=== PATIENT | female | born 1965 | race Caucasian/White ===

== ENCOUNTER 2024-03-29 10:54 | Outpatient (CLI) | payer OTHER | END 2024-03-29 10:55 | disposition home or self-care (01) | LOC: LABBT 10:54 | PROVIDERS: ATTEND Surgery | DX: Z01.810 Encounter for preprocedural cardiovascular examination (principal); C50.912 Malignant neoplasm of unspecified site of left female breast | CPT/HCPCS: 93005; 93010 ==

== ENCOUNTER 2024-04-03 06:52 | Day surgery (SDC) | payer OTHER | END 2024-04-03 14:06 | disposition home or self-care (01) | LOC: NM 06:52 | PROVIDERS: ATTEND Surgery | DX: C50.919 Malignant neoplasm of unspecified site of unspecified female breast (principal) | CPT/HCPCS: 19281; 76098; 78195; 88307; 88342; A6258; A9541; J0171; J0665; J1100; J1171; J1885; J2250; J2405; J2704; Q9968 ==

== ENCOUNTER 2024-09-24 10:44 | Outpatient (CLI) | payer OTHER | END 2024-09-24 10:45 | disposition home or self-care (01) | LOC: BICCT 10:44 | PROVIDERS: ATTEND Family Medicine | DX: N20.0 Calculus of kidney (principal) | CPT/HCPCS: 74176 ==